=== PATIENT | female | born 2000 | race African-American/Black ===

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

== ENCOUNTER 2019-10-04 20:49 | Emergency (ER) | payer MEDICAID ==
[~2019-10-04] VITALS: Ht 170.2 cm; Wt 105.0 kg
[2019-10-04 22:31] LABS: CLARITY URINE CLOUDY (CLEAR); COLOR URINE YELLOW (YELLOW); KETONES URINE NEGATIVE (NEGATIVE); LEUKOCYTE ESTERASE URINE NEGATIVE (NEGATIVE); NITRITE URINE NEGATIVE (NEGATIVE); OCCULT BLOOD URINE 3+ (NEGATIVE); PROTEIN URINE 1+ (NEGATIVE); SPECIFIC GRAVITY URINE 1.036 (1.005-1.030); UROBILINOGEN URINE 0.2 E.U./dL (0.2-1.0)
[2019-10-05 02:36] LABS: BASOPHILS % 0.4 % (0.0-2.0); HEMATOCRIT. 38.1 % (36.0-48.0); HEMOGLOBIN. 12.9 g/dL (12.0-16.0); LYMPHOCYTES % 30.4 % (20.0-50.0); MEAN CORPUSCULAR HEMOGLOBIN 30.3 pg (28.0-32.0); MEAN CORPUSCULAR VOLUME 89.7 fL (81.0-99.0); MEAN PLATELET VOLUME 7.9 fl (7.4-10.4); MONOCYTES % 12.9 % (2.0-8.0); NEUTROPHILS % 55.3 % (40.0-76.0); PLATELET 342 x1000/uL (130-400); RED BLOOD CELL COUNT 4.25 mill/uL (4.2-5.4); RED CELL DISTRIBUTION WIDTH 14.3 % (11.6-14.6)
[2019-10-05] MEDS ORDERED: KETOROLAC 60MG/2ML VIAL IM ONE (03:00)
[2019-10-05 03:01] LABS: CHLORIDE 112 mEq/L (98-107)
[2019-10-05 03:50] VITALS: BP 131/64
[2019-10-05 04:15] LABS: HEPATITIS B SURFACE ANTIGEN NEGATIVE
[2019-10-05 12:24] LABS: HEPATITIS B SURFACE AB 8.7 mIU/mL
[2019-10-07 04:07] LABS: HIV SCREEN 4G Non Reactive (Non Reactive)
== END 2019-10-05 04:25 | disposition left against medical advice (07) ==
LOC: ER 23:15
DX: N93.9 Abnormal uterine and vaginal bleeding, unspecified (principal)
CPT/HCPCS: 36415; 81003; 81025; 87389; 99283

== ENCOUNTER 2025-01-26 09:56 | Emergency (ER) | payer MEDICAID ==
[~2025-01-26] VITALS: Ht 175.3 cm; Wt 66.0 kg
[~2025-01-26 09:56] MED LIST: LABE200T9 PO; LABETALOL
[2025-01-26 09:58] VITALS: O2SAT 100
[2025-01-26 10:11] VITALS: BP 147/85; PULSE 108; RESP 18; TEMP 37.1; O2SAT 98
[2025-01-26 11:28] LABS: BASOPHILS % 0.6 % (0.0-2.0); EOSINOPHILS % 1.6 % (0.0-5.0); HEMATOCRIT. 41.8 % (36.0-48.0); HEMOGLOBIN. 13.6 g/dL (12.0-16.0); LYMPHOCYTES % 21.2 % (20.0-50.0); MEAN CORPUSCULAR HEMOGLOBIN 28.4 pg (28.0-32.0); MEAN CORPUSCULAR HGB CONC 32.5 g/dL (31.0-37.0); MEAN CORPUSCULAR VOLUME 87.5 fL (81.0-99.0); MEAN PLATELET VOLUME 8.2 fl (7.4-10.4); MONOCYTES % 7.7 % (2.0-8.0); NEUTROPHILS % 68.9 % (40.0-76.0); PLATELET 373 x1000/uL (130-400); RED BLOOD CELL COUNT 4.78 mill/uL (4.2-5.4); RED CELL DISTRIBUTION WIDTH 14.6 % (11.6-14.6); WHITE BLOOD COUNT 5.3 x1000/uL (4.5-11.0)
[2025-01-26 11:40] LABS: CHLORIDE 106 mEq/L (98-107); POTASSIUM 3.9 mEq/L (3.5-5.1); SODIUM 140 mEq/L (136-145)
[2025-01-26 11:41] LABS: CARBON DIOXIDE 23 mEq/L (21-32)
[2025-01-26 11:46] LABS: CREATININE 0.7 mg/dL (0.6-1.0); GLUCOSE 98 mg/dL (70-105); UREA NITROGEN BLOOD 7 mg/dL (9-23)
[2025-01-26 11:51] LABS: T4 FREE 1.15 ng/dL (0.89-1.76); THYROID STIMULATING HORMONE 0.41 uIU/mL (0.55-4.78)
[2025-01-26 11:56] LABS: TROPONIN I HIGH SENSITIVITY < 4 ng/L (3.0-34)
[2025-01-26 12:01] LABS: HCG SCREEN NEGATIVE
== END 2025-01-26 12:31 | disposition home or self-care (01) ==
LOC: ER 09:56
DX: R00.2 Palpitations (principal); F10.90 Alcohol use, unspecified, uncomplicated; F41.9 Anxiety disorder, unspecified; Z79.899 Other long term (current) drug therapy; Y90.9 Presence of alcohol in blood, level not specified
CPT/HCPCS: 36415; 71045; 80048; 84439; 84443; 84484; 84703; 85025; 93005; 99285